=== PATIENT | female | born 1985 | race African-American/Black ===

== ENCOUNTER 2016-12-13 21:31 | Emergency (ER) | payer MEDICAID ==
[2016-12-13 22:04] VITALS: BP 121/78
[2016-12-13 23:51] LABS: APPEARANCE,URINE CLEAR; BILIRUBIN,URINE NEGATIVE (NEGATIVE); GLUCOSE, URINE NEGATIVE (NEGATIVE); KETONES,URINE NEGATIVE (NEGATIVE); LEUKOCYTE ESTERASE,URINE NEGATIVE (NEGATIVE); NITRITE,URINE NEGATIVE (NEGATIVE); PROTEIN,URINE NEGATIVE (NEGATIVE); URINE SPECIFIC GRAVITY 1.028; UROBILINOGEN,URINE NEGATIVE mg/dL (<2.0)
--- NOTE | 2016-12-14 00:17 | ER Document Report ---
ED GI/ - General Chief Complaint: Vaginal Bleeding Stated Complaint: LOWER BACK PAIN Time Seen by Provider: 12/14/16 00:09 Mode of Arrival: Ambulatory Information source: Patient Notes: 31 yo female c/o pelvic pain, cramping, vaginal bleeding sine August, low back pain, passed blood clot yesterday. LMP: may. Implanon August 27, no bleeding for 2 weeks. No obgyn. Moved here from [place] October. Last sex August. No vaginal d/ c or odor. No urinary symptoms. No hx std, endometriosis. Fibroids, c section. . Came today because she is more bloated, with pain and the blood clot freaked her out. - Related Data Allergies/Adverse Reactions: No Known Allergies Allergy (Unverified 12/13/16 21:59) Past Medical History - General Information source: Patient - Social History Smoking Status: Never Smoker Frequency of alcohol use: Occasional Drug Abuse: None Lives with: Spouse/Significant other Family History: Reviewed & Not Pertinent - Medical History Notes: see above Renal/ Medical History: Denies: Hx Peritoneal Dialysis Review of Systems - Review of Systems Constitutional: No symptoms reported EENT: No symptoms reported Cardiovascular: No symptoms reported Respiratory: No symptoms reported Gastrointestinal: No symptoms reported Genitourinary: No symptoms reported Female Genitourinary: See HPI Musculoskeletal: No symptoms reported Skin: No symptoms reported Hematologic/Lymphatic: No symptoms reported Neurological/Psychological: No symptoms reported Physical Exam - Vital signs Vitals: Temp Pulse Resp BP Pulse Ox 98.6 F 71 15 121/78 99 12/13/16 21:59 12/13/16 21:59 12/13/16 21:59 12/13/16 21:59 12/13/16 21:59 Interpretation: Normal - General General appearance: Appears well, Alert In distress: None - HEENT Head: Normocephalic, Atraumatic Eyes: Normal Pupils: PERRL Neck: Supple. No: Thyromegally - Respiratory Respiratory status: No respiratory distress Chest status: Nontender Breath sounds: Normal Chest palpation: Normal - Cardiovascular Rhythm: Regular Heart sounds: Normal auscultation Murmur: No - Abdominal Inspection: Normal Distension: No distension Bowel sounds: Normal Tenderness: Tender - pelvis all the way across Organomegaly: No organomegaly - Back Back: Normal, Nontender. No: CVA tenderness - Extremities General upper extremity: Normal inspection, Nontender, Normal color, Normal ROM , Normal temperature General lower extremity: Normal inspection, Nontender, Normal color, Normal ROM , Normal temperature, Normal weight bearing. No: Giulia's sign - Neurological Neuro grossly intact: Yes Cognition: Normal Orientation: AAOx4 Elinor Coma Scale Eye Opening: Spontaneous Elinor Coma Scale Verbal: Oriented Darby Coma Scale Motor: Obeys Commands Darby Coma Scale Total: 15 Speech: Normal Motor strength normal: LUE, RUE, LLE, RLE Sensory: Normal - Psychological Associated symptoms: Normal affect, Normal mood - Skin Skin Temperature: Warm Skin Moisture: Dry Skin Color: Normal Skin irregularity: negative: Rash Course - Re-evaluation Re-evalutation: 12/14/16 00:21 urinalysis and test are negative. 12/14/16 01:33 Wet prep shows possible bacterial vaginosis with 3+ bacteria and 3+ epithelials , no trichomonas. STD cultures are pending. Will refer patient to [facility]. 12/14/16 01:34 12/14/16 05:36 GC and Chlamydia are negative patient did not call me back for the results - Vital Signs Vital signs: Temp Pulse Resp BP Pulse Ox 98.6 F 71 15 121/78 99 12/13/16 21:59 12/13/16 21:59 12/13/16 21:59 12/13/16 21:59 12/13/16 21:59 - Laboratory Result Diagrams: 12/14/16 01:14 Laboratory results interpreted by me: 12/13/16 12/14/16 23:39 01:14 MCH 26.7 L RDW 15.1 H Urine Blood SMALL H Discharge - Discharge Clinical Impression: vaginal bleeding, Pelvic pain, Bacterial vaginosis Condition: Good Disposition: HOME, SELF-CARE Instructions: Metronidazole ([facility]), [facility], Pelvic Pain ([facility]), Vaginal Bleeding ([facility]), Vaginosis, Bacterial ([facility]) Additional Instructions: See [facility] doctor for this chronic vaginal bleeding Do not drink alcohol when you take the metronidazole for the bacterial vaginosis Return to the emergency room if increased pain or any concerns Call me in 3 hours for the STD culture results [phone] Please complete the patient satisfaction survey if you get one, and return it.. If you do not receive a survey, then you can go to the [facility] website, [email or web address] and place your comments about your very good care. Thank you very much. It was a pleasure being your medical provider today. Prescriptions: Metronidazole [Flagyl 500 mg Tablet] 500 mg PO BID #14 tablet Referrals: NATALIA BUTT MD [ACTIVE STAFF] - Follow up as needed
[2016-12-14 01:21] LABS: ABSOLUTE EOSINOPHILS # (AUTO) 0.3 10^3/uL (0.0-0.6); ABSOLUTE LYMPHOCYTES (AUTO) 2.7 10^3/uL (0.5-4.7); ABSOLUTE MONOCYTES (AUTO) 0.4 10^3/uL (0.1-1.4); ABSOLUTE NEUT (AUTO) 3.4 10^3/uL (1.7-8.2); BASOPHILS % (AUTO) 0.5 % (0-2); HEMATOCRIT 36.9 % (36.0-47.0); HEMOGLOBIN 12.3 g/dL (12.0-15.5); LYMPHOCYTES % (AUTO) 39.5 % (13-45); MEAN CORPUSCULAR HEMOGLOBIN 26.7 pg (27.0-33.4); MEAN CORPUSCULAR HGB CONC 33.3 g/dL (32.0-36.0); MEAN CORPUSCULAR VOLUME 80 fl (80-97); MONOCYTES % (AUTO) 5.8 % (3-13); RED BLOOD COUNT 4.61 10^6/uL (3.72-5.28); RED CELL DISTRIBUTION WIDTH 15.1 % (11.5-14.0); SEGMENTED NEUTROPHILS % (AUTO) 50.2 % (42-78); WHITE BLOOD COUNT 6.8 10^3/uL (4.0-10.5)
[2016-12-14] MEDS ORDERED: METRONIDAZOLE 500 MG TABLET PO ONE (01:34)
[2016-12-14] MEDS ORDERED: IBUPROFEN 800 MG TABLET PO ONE (01:34)
[2016-12-14] MEDS ORDERED: ONDANSETRON 4 MG TAB.RAPDIS PO ONE (01:34)
[2016-12-14 02:44] LABS: CHLAM PCR NOT DETECTED (NOT DETECT)
== END 2016-12-14 02:19 | disposition home or self-care (01) ==
LOC: ER 21:31
DX: N93.8 Other specified abnormal uterine and vaginal bleeding (principal); N76.0 Acute vaginitis; B96.89 Other specified bacterial agents as the cause of diseases classified elsewhere; R10.2 Pelvic and perineal pain; M54.5 Low back pain
CPT/HCPCS: 99284; 36415; 87210; 85025; 81025; 81001; 87491; 87591; J3490 ×2; S0119

== ENCOUNTER → 2017-03-04 | Outpatient (CLI) | payer BC, MEDICAID | LOC: OD 16:28 | PROVIDERS: ATTEND Obstetrics & Gynecology | DX: N85.8 Other specified noninflammatory disorders of uterus (principal) | CPT/HCPCS: 88305 ==

== ENCOUNTER 2017-03-16 10:03 | Observation (INO) | payer BC ==
[2017-03-13 11:20] LABS: HEMATOCRIT 39.2 % (36.0-47.0); HEMOGLOBIN 12.8 g/dL (12.0-15.5); HGB HCT DIFFERENCE -0.8; MEAN CORPUSCULAR HEMOGLOBIN 25.5 pg (27.0-33.4); MEAN CORPUSCULAR HGB CONC 32.6 g/dL (32.0-36.0); MEAN CORPUSCULAR VOLUME 78 fl (80-97); RED BLOOD COUNT 5.02 10^6/uL (3.72-5.28); WHITE BLOOD COUNT 5.8 10^3/uL (4.0-10.5)
[2017-03-13 11:23] LABS: APPEARANCE,URINE CLEAR; BILIRUBIN,URINE NEGATIVE (NEGATIVE); GLUCOSE, URINE NEGATIVE (NEGATIVE); KETONES,URINE NEGATIVE (NEGATIVE); LEUKOCYTE ESTERASE,URINE NEGATIVE (NEGATIVE); NITRITE,URINE NEGATIVE (NEGATIVE); PROTEIN,URINE NEGATIVE (NEGATIVE); URINE SPECIFIC GRAVITY 1.018
[2017-03-13 11:53] LABS: ALANINE AMINOTRANSFERASE 40 U/L (9-52); ALBUMIN 4.8 g/dL (3.5-5.0); ALKALINE PHOSPHATASE 74 U/L (38-126); ANION GAP 12 (5-19); ASPARTATE AMINO TRANSFERASE 28 U/L (14-36); BILIRUBIN,DIRECT 0.2 mg/dL (0.0-0.4); BILIRUBIN,TOTAL 0.5 mg/dL (0.2-1.3); BLOOD UREA NITROGEN 10 mg/dL (7-20); CALCIUM 9.9 mg/dL (8.4-10.2); CARBON DIOXIDE 27 mmol/L (22-30); CHLORIDE 102 mmol/L (98-107); CREATININE RESULT 0.94 mg/dL (0.52-1.25); GLUCOSE 88 mg/dL (75-110); POTASSIUM 4.6 mmol/L (3.6-5.0); SODIUM 141.4 mmol/L (137-145); TOTAL PROTEIN 7.8 g/dL (6.3-8.2)
[~2017-03-16 10:03] MED LIST: BUPIVACAINE HCL 0.25 % INJ/PF (2.5 MG/1 ML) 30 ML VIAL ONE; CEFAZOLIN 1 GM/D5W RTU 1 GM/50 ML RTUPB IV PRN; LACTATED RINGERS 1000 ML IV PRN; LIDOCAINE 0.5% INJ-PF (5 MG/ML) 50 ML SDV SUBCUT PRN
[2017-03-16] MEDS ORDERED: FENTANYL CITRATE INJ/PF 100 MCG/2 ML AMPUL ONE (13:36)
[2017-03-16] MEDS ORDERED: ACETAMINOPHEN 100 ML IV ONE (13:36)
[2017-03-16] MEDS ORDERED: MIDAZOLAM 2 MG/2 ML INJ ONE (13:36)
[2017-03-16] MEDS ORDERED: PROPOFOL INJ 200 MG/20 ML VIAL IV ONE (13:36)
[2017-03-16] MEDS ORDERED: PROMETHAZINE HCL INJ 25 MG/1 ML VIAL IV PRN ×3 (15:09→16:16)
[2017-03-16] MEDS ORDERED: DIPHENHYDRAMINE HCL 50 MG/ML VIAL IV PRN (15:09)
[2017-03-16] MEDS ORDERED: FENTANYL CITRATE INJ/PF 100 MCG/2 ML AMPUL IV PRN ×3 (15:09)
[2017-03-16] MEDS ORDERED: MEPERIDINE HCL/PF INJ 25 MG/1 ML DISP.SYRIN IV PRN (15:09)
[2017-03-16] MEDS ORDERED: MORPHINE SULFATE 10 MG/ML INJ IV PRN (15:09)
[2017-03-16] MEDS ORDERED: BUPIVACAINE HCL 0.25 % INJ/PF (2.5 MG/1 ML) 30 ML VIAL ONE (15:32)
[2017-03-16] MEDS ORDERED: GLYCOPYRROLATE INJ 0.4 MG/2 ML VIAL ONE (15:41)
[2017-03-16] MEDS ORDERED: ONDANSETRON HCL INJ/PF 4 MG/2 ML SDV ONE (15:41)
[2017-03-16] MEDS ORDERED: DEXAMETHASONE SOD PHOSPHATE INJ 4 MG/1 ML VIAL ONE (15:41)
[2017-03-16] MEDS ORDERED: SUCCINYLCHOLINE CHLORIDE INJ 200 MG/10 ML VIAL ONE (15:41)
[2017-03-16] MEDS: FENTANYL CITRATE INJ/PF 100 MCG/2 ML AMPUL ONE ×2 (16:00→16:05)
[2017-03-16] MEDS ORDERED: PROMETHAZINE HCL INJ 25 MG/1 ML VIAL ONE (16:44)
--- NOTE | 2017-03-16 16:53 | OPERATIVE REPORT E ---
Operative Report NAME: LORENA BRITTON : 1985 AGE: 31Y DATE OF SURGERY: 03/16/2017 ROOM: PREOPERATIVE DIAGNOSES: 1. PELVIC PAIN, STATUS POST C-SECTIONS TIMES 2. 2. REPAIR OF A HERNIA. POSTOPERATIVE DIAGNOSES: 1. PELVIC PAIN. 2. DYSFUNCTIONAL UTERINE BLEEDING WITH EXTENSIVE PELVIC ADHESIONS BETWEEN THE ABDOMINAL WALL AND THE UTERUS, ADVANCING THE UTERUS UP AGAINST THE ABDOMINAL WALL WITH KELOID FORMATION. SHE ALSO HAD A SMALL OMENTAL ADHESION BETWEEN THE UMBILICUS AND THE OMENTUM WHICH WAS TAKEN DOWN. 3. THE OVARIES APPEAR TO BE NORMAL. 4. THE TUBES APPEAR TO BE NORMAL. 5. THE LIVER APPEARED TO BE GROSSLY NORMAL. SURGEON: ALICIA DIANA M.D. PROCEDURE: Patient was brought into the OR, placed on a table in supine position, inducted under general anesthesia. She was repositioned in a dorsal lithotomy position and then prepped and draped in a sterile fashion. The bladder was drained with a straight catheter and then it was decided to put in a Reyez. Having accomplished that, the pelvic under anesthesia was performed. With essentially negative findings, the weighted speculum was inserted. The cervix was grasped on its anterior lip. It was sounded to 8 cm, dilated with Hegar dilators and a curettage was carried out with a small sharp curette. No tissue was returned; a lot of mucus, however, was returned. This was sent just in case there were some cells for further evaluation. Tenaculum and probe was inserted. The other equipment was removed. The adjuvant was turned toward the abdominal wall, Dr. Jones was there to assist. We made an incision in the lower abdomen, longterm between the umbilicus and symphysis pubis. This was carried through the various layers until a small open was made in the peritoneum. There was no evidence of any adhesions. At this point, a sleeve was put in and secured. Having accomplished that, the scopes were inserted and we were able to visualize the pelvic structures. Unfortunately, the uterus had been elided from her previous C-sections to abdominal wall with really advanced adhesions. The tubes and the ovaries appeared to be normal. She did have one small omental adhesion between the repair of the umbilical hernia and the anterior omentum which was taken down under direct visualization. Prior to taking down the adhesion, a small incision was made in the right lower quadrant. Through this incision, a trocar and sleeve were inserted, and through the sleeve, the scissors were inserted. The area of omentum that was oozing was then cauterized with bipolar forceps. This terminated the procedure. The areas were then lavaged out. The excess *------* was removed. The CO2 was allowed to escape. The trocars were removed. The fascia was closed with a [id number]. The subcu was closed with interrupted 0 Vicryl. The fascial stitches were also 0 Vicryl. Skin edges were brought together with subcuticular 4-0 Prolene in the midline incision and an interrupted 4-0 Prolene in the right lower quadrant incision. Then, we turned our attention back down to the uterus. The tenaculum probe was removed. The vaginal speculum was reinserted and the cervix was inspected. There was no evidence of active bleeding. This terminated the procedure. The Reyez was deflated and removed. The patient was transferred to recovery room in satisfactory condition after turning off the anesthesia. DICTATING PHYSICIAN: ALICIA DIANA M.D. [id number] PHY#: [id number] ID: [id number] JOB#: [id number] ACCT: [id number] cc:ALICIA DIANA M.D. >
[2017-03-16] MEDS: OXYCODONE-ACETAMINOPHEN 5-325 MG TABLET PO PRN ×2 (17:03→20:03)
[2017-03-16 18:18] LABS: ABSOLUTE LYMPHOCYTES (AUTO) 1.1 10^3/uL (0.5-4.7); ABSOLUTE MONOCYTES (AUTO) 0.1 10^3/uL (0.1-1.4); ABSOLUTE NEUT (AUTO) 5.9 10^3/uL (1.7-8.2); BASOPHILS % (AUTO) 0.1 % (0-2); EOSINOPHILS % (AUTO) 0.6 % (0-6); HEMATOCRIT 38.6 % (36.0-47.0); HEMOGLOBIN 12.6 g/dL (12.0-15.5); HGB HCT DIFFERENCE -0.8; LYMPHOCYTES % (AUTO) 15.2 % (13-45); MEAN CORPUSCULAR HEMOGLOBIN 25.5 pg (27.0-33.4); MEAN CORPUSCULAR HGB CONC 32.7 g/dL (32.0-36.0); MEAN CORPUSCULAR VOLUME 78 fl (80-97); RED BLOOD COUNT 4.94 10^6/uL (3.72-5.28); RED CELL DISTRIBUTION WIDTH 16.5 % (11.5-14.0); SEGMENTED NEUTROPHILS % (AUTO) 83.1 % (42-78); WHITE BLOOD COUNT 7.1 10^3/uL (4.0-10.5)
[2017-03-16 18:34] LABS: ANION GAP 12 (5-19); BLOOD UREA NITROGEN 11 mg/dL (7-20); CARBON DIOXIDE 27 mmol/L (22-30); CHLORIDE 101 mmol/L (98-107); CREATININE RESULT 0.91 mg/dL (0.52-1.25); GLUCOSE 131 mg/dL (75-110); POTASSIUM 4.4 mmol/L (3.6-5.0); SODIUM 140.2 mmol/L (137-145)
[2017-03-16] MEDS ORDERED: ETONOGESTREL 68 MG SQ PRN (22:31)
[2017-03-16] MEDS: KETOROLAC TROMETHAMINE INJ/PF 30 MG/1 ML SDV IV PRN (22:49)
[2017-03-17] MEDS: OXYCODONE-ACETAMINOPHEN 5-325 MG TABLET PO PRN ×5 (00:36→19:33)
[2017-03-17] MEDS: KETOROLAC TROMETHAMINE INJ/PF 30 MG/1 ML SDV IV PRN (06:36)
[2017-03-17 07:21] LABS: ABSOLUTE LYMPHOCYTES (AUTO) 1.1 10^3/uL (0.5-4.7); ABSOLUTE MONOCYTES (AUTO) 0.5 10^3/uL (0.1-1.4); ABSOLUTE NEUT (AUTO) 6.3 10^3/uL (1.7-8.2); BASOPHILS % (AUTO) 0.1 % (0-2); HGB HCT DIFFERENCE -0.7; LYMPHOCYTES % (AUTO) 14.5 % (13-45); MEAN CORPUSCULAR HEMOGLOBIN 25.5 pg (27.0-33.4); MEAN CORPUSCULAR HGB CONC 32.6 g/dL (32.0-36.0); MEAN CORPUSCULAR VOLUME 78 fl (80-97); MONOCYTES % (AUTO) 5.7 % (3-13); RED BLOOD COUNT 3.97 10^6/uL (3.72-5.28); SEGMENTED NEUTROPHILS % (AUTO) 79.7 % (42-78); WHITE BLOOD COUNT 7.9 10^3/uL (4.0-10.5)
[2017-03-17 07:22] LABS: HEMOGLOBIN 10.1 g/dL (12.0-15.5)
[2017-03-17 07:30] LABS: ANION GAP 10 (5-19); BLOOD UREA NITROGEN 12 mg/dL (7-20); CALCIUM 9.5 mg/dL (8.4-10.2); CARBON DIOXIDE 24 mmol/L (22-30); CHLORIDE 102 mmol/L (98-107); CREATININE RESULT 0.91 mg/dL (0.52-1.25); GLUCOSE 137 mg/dL (75-110); POTASSIUM 4.7 mmol/L (3.6-5.0); SODIUM 136.4 mmol/L (137-145)
[2017-03-17] MEDS ORDERED: (PENDING PHARMACY ID) (Dextroamphetamine/Amphetamine [Adderall 20 Mg Tablet] 20 MG) PO SCH (10:00)
[2017-03-17] MEDS ORDERED: PRENATAL VITAMIN W DHA CAPSULE PO SCH (10:00)
[2017-03-17] MEDS ORDERED: [UNRECOGNIZED DRUG - REMARK] PO SCH (10:00)
[2017-03-17 14:50] LABS: HEMATOCRIT 30.6 % (36.0-47.0); HEMOGLOBIN 10.2 g/dL (12.0-15.5); MEAN CORPUSCULAR HEMOGLOBIN 25.9 pg (27.0-33.4); MEAN CORPUSCULAR HGB CONC 33.2 g/dL (32.0-36.0); MEAN CORPUSCULAR VOLUME 78 fl (80-97); RED BLOOD COUNT 3.93 10^6/uL (3.72-5.28); WHITE BLOOD COUNT 9.4 10^3/uL (4.0-10.5)
[2017-03-17] MEDS ORDERED: PHENOL/SODIUM PHENOLATE 100 SPRAY/177 ML BOTTLE PO PRN (15:04)
[2017-03-17 17:00] VITALS: BP 109/54
--- NOTE | 2017-03-17 17:38 | DISCHARGE SUMMARY E ---
Discharge Summary NAME: LORENA BRITTON : 1985 AGE: 31Y ADMITTED: 03/16/2017 DISCHARGED: 03/17/2017 FINAL DIAGNOSIS: Postop pain secondary to laparoscopic evaluation for chronic pelvic pain with findings of extensive scar tissue between the anterior uterus and the abdominal wall consistent with keloid. There was also a periumbilical adhesion between the omentum from her previous repair of umbilical hernia with mesh. HOSPITAL COURSE: The patient was brought into the hospital for surgery. She underwent an exploratory laparoscopy with lysis of adhesions. Following the surgery she experienced a great deal of difficulty with pain and discomfort. It was elected to admit her for further observation and treatment. At the time of admission vital signs were stable. She was complaining of 5/5 pain. We initially got her on Percocet but this did not seem to be relieving the pain. She was switched over to Toradol which seemed to do a better job with controlling her pain. We watched her for approximately 24 hours. Her vital signs remained stable. Her chemistries also remained stable. She did have a blood drop of 12.4 to 10.4, we repeated this, it went up to 10.6 after about 6 hours and we thought it was okay to release her to go home. At the time of discharge she was alert and oriented x3 with motor, cranial, and sensory nerves grossly intact. Lungs were clear. Heart regular rhythm without murmurs. Abdomen was nondistended. She is still a little tender postoperatively. The incisions looked fine. Extremities; no gross deformity. She was up and walking. FINAL DIAGNOSIS: Pelvic pain, status post postop with laparoscopy and lysis of adhesions. MEDICATIONS: She was discharged on Percocet and Phenergan. FOLLOW UP: She will be followed up in our office in 1 week's time. She was advised to call if she had any problems with elevated temperature, any problems with increasing pain, if she noticed problems with bleeding, and if she was not able to have a bowel movement within the next 24-48 hours. DICTATING PHYSICIAN: ALICIA DIANA M.D. [id number] PHY#: [id number] ID: [id number] JOB#: [id number] ACCT: [id number] cc:ALICIA DIANA M.D. >
--- NOTE | 2017-03-17 18:18 | HISTORY AND PHYSICAL E ---
History and Physical NAME: LORENA BRITTON : 1985 AGE: 31Y ADMITTED: 03/16/2017 ROOM: 531 CHIEF COMPLAINT: Postoperative pain. HISTORY OF PRESENT PROBLEM: This is a 31-year-old female who was brought into the hospital on 03/16/2017 for an exploratory laparotomy. She had been complaining of long-term history of pain and discomfort, really that has been going on over the last 2 to 3 years subsequent to her last with the delivery of a live , as stated by section. The pain was becoming more and more severe. We worked her up in the office, was unable to come up with anything in regards to any of our laboratories or testing, and ultimately she decided to undergo laparoscopy. Of note, as stated she has had two previous sections, and she did have a repair of an umbilical hernia at the time of her last with a mesh. We brought her into the hospital, initially did a laparoscopy through a lower midline abdominal incision and a right lower quadrant incision. She had some periumbilical adhesions. These were lysed. The main problem at the time of surgery was that the uterus was scarred down with dense keloiding between the anterior uterine wall and the abdominal wall, which I believe is the etiology of her pain and discomfort. Nonetheless, after surgery, the patient was treated with pain medications and nausea medicines but continued to have a large amount of pain which she described as 5 out of 5, not relieved with the medicine. With this in mind, we decided to go ahead and admit the patient for further observation and treatment. We kept an eye on her. PHYSICAL EXAMINATION: GENERAL: At the time of admission, her pain level, as stated, was 5 out of 5. She was alert. She was oriented x3. LUNGS: Clear. HEART: Regular rate and rhythm without murmurs. ABDOMEN: Her abdomen was postop with pain. PELVIC: We did not do any further pelvic exam. EXTREMITIES: Within normal limits. NEUROLOGIC: Oriented x3 with motor, cranial, and sensory nerves grossly intact. VITAL SIGNS: Revealed blood pressure of 98/58, a pulse of 69, a temperature of 97.7, pulse oximetry was 99%, respirations were 14. DIAGNOSTIC DATA: In the morning, we did get follow-up labs. Her hemoglobin had dropped from 12.4 down to 10.1, but this was thought to be secondary to Toradol which was helping her pain. White count was 7.9. Platelets were 216,000. Chemistries were all okay with sodium being 136, potassium 4.7, chloride 102, her blood sugar was 137, and her estimated glomerular filtration rate was greater than 60. IMPRESSION: Postop pain. PLAN: Admit for observation. DICTATING PHYSICIAN: ALICIA DIANA M.D. [id number] PHY#: [id number] ID: [id number] JOB#: [id number] ACCT: [id number] cc:ALICIA DIANA M.D. >
[2017-03-17] MEDS ORDERED: ZOLPIDEM TARTRATE 5 MG TABLET PO SCH (22:00)
== END 2017-03-17 19:45 | disposition home or self-care (01) ==
LOC: OROUT 10:03 → EDSTATUS 11:30 → 5 19:41 → OROUT 19:41 → 5 21:06 → OROUT 03-17 19:45 → 5 03-17 19:45
PROVIDERS: ADMIT Obstetrics & Gynecology; ATTEND Obstetrics & Gynecology
PROC: 0DNW4ZZ Release Peritoneum, Percutaneous Endoscopic Approach (ICD-10-PCS; 2017-03-16)
PROC: 0DNU4ZZ Release Omentum, Percutaneous Endoscopic Approach (ICD-10-PCS; 2017-03-16)
PROC: 0UDB7ZX Extraction of Endometrium, Via Natural or Artificial Opening, Diagnostic (ICD-10-PCS; principal; 2017-03-16 13:30)
DX: G89.28 Other chronic postprocedural pain (principal); R10.2 Pelvic and perineal pain; L91.0 Hypertrophic scar; N73.6 Female pelvic peritoneal adhesions (postinfective); K66.0 Peritoneal adhesions (postprocedural) (postinfection); N93.8 Other specified abnormal uterine and vaginal bleeding
CPT/HCPCS: 36415 ×2; 85025; 85027 ×2; 81025; 80048; 80053; 81001; 88305 ×2; 58120; 58578; 49329; G0378 ×2; J2250; J0690; J3490 ×2; J1100; J3010; J1885 ×2; J2550; J0330; J2405; J2704; J0131; 840

== ENCOUNTER 2017-08-23 18:55 | Emergency (ER) | payer BC ==
[2017-08-23 19:03] VITALS: BP 118/80
--- NOTE | 2017-08-23 19:30 | ER Document Report ---
HPI - HPI Patient complains to provider of: Menstrual cup stuck in vagina Onset: Yesterday Pain Level: 3 Context: 31-year-old female inserted a menstrual cup yesterday so she could go out for her birthday partying last night. She could not get it out when she got back and then she had intercourse with her and she still cannot get it out. Associated Symptoms: None Exacerbated by: Denies Relieved by: Denies Similar symptoms previously: No Recently seen / treated by doctor: No - ROS ROS below otherwise negative: Yes Systems Reviewed and Negative: Yes All other systems reviewed and negative - REPRODUCTIVE Reproductive: DENIES: : Past Medical History - General Information source: Patient - Social History Smoking Status: Never Smoker Frequency of alcohol use: None Drug Abuse: None Lives with: Family Family History: Reviewed & Not Pertinent Pulmonary Medical History: Reports: Hx Asthma - CHILDHOOD ASTHMA Renal/ Medical History: Denies: Hx Peritoneal Dialysis Surgical Hx: Negative - Immunizations Hx Diphtheria, Pertussis, Tetanus Vaccination: No Vertical Provider Document - CONSTITUTIONAL Agree With Documented VS: Yes - INFECTION CONTROL TRAVEL OUTSIDE OF THE [place] IN LAST 30 DAYS: No - HEENT HEENT: Normocephalic - NECK Neck: Supple - GI/ABDOMEN Gastrointestinal: Abdomen Soft, Abdomen Non-Tender - REPRODUCTIVE Notes: Menstrual cup in the vagina with old blood - NEURO Level of Consciousness: Awake, Alert - DERM Integumentary: Warm, Dry Course - Re-evaluation Re-evalutation: 08/23/17 20:02 menstrual cup removed with ring forceps - Vital Signs Vital signs: Temp Pulse Resp BP Pulse Ox 98.6 F 79 16 118/80 100 08/23/17 19:02 08/23/17 19:02 08/23/17 19:02 08/23/17 19:02 08/23/17 19:02 Discharge - Discharge Clinical Impression: Foreign body removal from the vagina Condition: Good Disposition: HOME, SELF-CARE Instructions: Foreign Body ([facility]) Additional Instructions: Use pads for this menses Return to the emergency room for any pelvic pain or fever Referrals: ALICIA DIANA MD [Primary Care Provider] - Follow up as needed
== END 2017-08-23 20:04 | disposition home or self-care (01) ==
LOC: ER 18:55
DX: T19.2XXA Foreign body in vulva and vagina, initial encounter (principal); X58.XXXA Exposure to other specified factors, initial encounter
CPT/HCPCS: 99283

== ENCOUNTER 2018-12-17 03:02 | Emergency (ER) | payer BC ==
[2018-12-17] MEDS ORDERED: IBUPROFEN 800 MG TABLET PO ONE (08:21)
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
[2018-12-17 08:35] VITALS: BP 114/77
== END 2018-12-17 09:05 | disposition home or self-care (01) ==
LOC: ER 03:02
DX: R13.10 Dysphagia, unspecified (principal); Y04.0XXA Assault by unarmed brawl or fight, initial encounter; J45.909 Unspecified asthma, uncomplicated; K08.89 Other specified disorders of teeth and supporting structures
CPT/HCPCS: 99284